=== PATIENT | female | born 1995 | race Caucasian/White ===

== ENCOUNTER 2017-02-07 10:31 | Day surgery (SDC) | payer BC ==
[~2017-02-07] VITALS: Ht 162.6 cm; Wt 51.0 kg
[2017-02-07] VITALS (12 sets, daily range): BP systolic 122–159; BP diastolic 67–78; PULSE 76–98; RESP 14–27; Ht 162.6 cm; Wt 51.0 kg
[~2017-02-07 10:31] MED LIST: CEFAZOLIN 1 GM INJ ONE; DEXAMETHASONE 4 MG/ML 1 ML INJ ONE; FENTAnyl 50 MCG/ML VIAL ONE; GLYCOPYRROLATE 0.4 MG INJ ONE; METOCLOPRAMIDE 10 MG INJ ONE; MIDAZOLAM 1 MG/ML 2 ML INJ ONE; NEOSTIGMINE 3 MG/3 ML SYRINGE ONE; ONDANSETRON 4 MG INJ ONE; PROPOFOL 20 ML ONE; ROCURONIUM 50 MG INJ ONE; ROPIVACAINE 0.5 % 30 ML VIAL ONE; SUGAMMADEX SODIUM 200 MG/2 ML VIAL IV ONE
--- NOTE | 2017-02-07 10:51 | HPN ---
Date/Time of Note Date/Time of Note DATE: 02/07/17 TIME: 10:50 Interval H&P Admission Note Pt. seen H&P reviewed: No system changes YO TALBOT MD Feb 07, 2017 10:50
[2017-02-07] MEDS ORDERED: NORE1TAB12 PO (11:05)
[2017-02-07] MEDS ORDERED: ROPIVACAINE 0.5 % 30 ML VIAL ONE (11:06)
[2017-02-07] MEDS ORDERED: POLYMYXIN/BACITRACIN 1L IRRIG ONE (11:06)
[2017-02-07] MEDS ORDERED: BACITRACIN/POLYMYXIN 28.35 GM OINT TOP ONE (11:07)
[2017-02-07] MEDS ORDERED: CA CHLORIDE 10% 10 ML SYRINGE ONE (11:57)
[2017-02-07] MEDS ORDERED: THROMBIN 5000 UNIT VIAL ONE (11:57)
[2017-02-07] MEDS ORDERED: OXYCODONE/ACETAMINOPHEN (5/325) TAB PO PRN ×2 (12:00)
[2017-02-07] MEDS ORDERED: hydrALAzine 20 MG INJ IV PRN (12:00)
[2017-02-07] MEDS ORDERED: ONDANSETRON 4 MG INJ IV PRN (12:00)
[2017-02-07] MEDS ORDERED: MEPERIDINE 25 MG INJ IV PRN (12:00)
[2017-02-07] MEDS ORDERED: HYDROmorphONE (0.2 MG/ML) 10ML SYG IV PRN ×3 (12:00)
[2017-02-07] MEDS ORDERED: FENTAnyl 50 MCG/ML VIAL IV PRN ×3 (12:00)
[2017-02-07] MEDS ORDERED: DIPHENHYDRAMINE 50 MG INJ IV PRN (12:00)
[2017-02-07] MEDS ORDERED: EPHEDrine SULFATE 50 MG/5 ML SYG IV PRN (12:00)
[2017-02-07] MEDS ORDERED: MIDAZOLAM 1 MG/ML 2 ML INJ IV PRN (12:00)
[2017-02-07] MEDS ORDERED: IPRATROPIUM (NEB) 0.5 MG/2.5 ML AMP HHN PRN (12:00)
[2017-02-07] MEDS ORDERED: LABETALOL HCL 20MG INJ IV PRN (12:00)
[2017-02-07] MEDS ORDERED: TRIMETHOBENZAMIDE 100 MG/ML VIAL IM PRN (12:00)
[2017-02-07] MEDS ORDERED: ALBUTEROL 0.083% (NEB) 2.5 MG/3 ML AMP HHN PRN (12:00)
[2017-02-07] MEDS ORDERED: morphine 2 MG INJ IV PRN (12:30)
[2017-02-07] MEDS ORDERED: SUGAMMADEX SODIUM 200 MG/2 ML VIAL IV ONE (14:20)
[2017-02-07] MEDS ORDERED: METOCLOPRAMIDE 10 MG INJ ONE (14:36)
--- NOTE | 2017-02-07 14:49 | SIPON ---
Date/Time of Note Date/Time of Note DATE: 02/07/17 TIME: 14:47 Operative Report Preoperative Diagnosis Right insertional Achilles Tendinitis Right Achilles retrocalcaneal bursitis Right Achilles Gurpreet Deformity Postoperative Diagnosis Right insertional Achilles Tendinitis Right Achilles retrocalcaneal bursitis Right Achilles Gurpreet Deformity Operation/Procedure Performed Right insertional Achilles Tendinitis debridement Right Achilles retrocalcaneal bursectomy Right Achilles Gurpreet Deformity calcaneal exostectomy Application PRP to the Right Achilles Surgeon Yo Talbot MD assistant professor sculpture Guido Talbot MD Second assist: JOSE ALDANA MD Anesthesia: general, other (popliteal block) Estimated blood loss: 0 - 10 ml's Transfusion Required none Specimen none Grafts/Implants 1 3.5mm Arthrex Push Lock with SutureTape Arthrex PRP (Hct 5%) Complications none YO TALBOT MD Feb 07, 2017 14:49
--- NOTE | 2017-02-07 14:49 | RADRPT ---
PROCEDURE: Intraoperative imaging of the right ankle with fluoroscopy. CLINICAL INDICATION: Right ankle pain. Intraoperative. TECHNIQUE: Images of the right ankle were obtained in the operating room with an image intensifier . No radiologist was in attendance. Fluoroscopy time is 0.2 minutes and 7 images were obtained. COMPARISON: No prior study is available for comparison. FINDINGS: Surgical instruments are noted in the posterior superior calcaneous at the site of osteotomy. IMPRESSION: 1. Intraoperative imaging of the right ankle. RPTAT: QQ .Gopi Aleman MD, MD Date Time Electronically viewed and signed by .Gopi Aleman MD, on 02/07/2017 14:49 .R/
--- NOTE | 2017-02-09 20:02 | QN ---
Documentation Comment HPI: Patient is a 21-year-old female with a 1 year history of ongoing Achilles tendinitis insertional type that is recalcitrant to both physical therapy and platelet rich plasma injections. Given her ongoing pain and difficulty being active patient was indicated for surgery. PMH: None PFH: Noncontributory PSH: Patient is a student at [employer]. She is a non- smoker, drinker and is very active in [employer] YO TALBOT MD Feb 09, 2017 20:02
--- NOTE | 2017-02-09 20:06 | OPR ---
DATE OF OPERATION: 02/07/2017 SURGEON: Yo Saldivar M.D. PROGRAM MANAGEMENT MANAGER: Guido Saldivar MD SECOND PROGRAM MANAGEMENT MANAGER: Remy Sorenson MD. PREOPERATIVE DIAGNOSIS: 1. Right Achilles insertional tendonitis. 2. 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 3. Right Achilles retrocalcaneal bursitis. POSTOPERATIVE DIAGNOSES: 1. Right Achilles insertional tendonitis. 2. 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 3. Right Achilles retrocalcaneal bursitis. PROCEDURE: 1. Right ankle Achilles tendon debridement. 2. Right ankle Achilles Gurpreet's deformity calcaneal exostectomy. 3. Right ankle retrocalcaneal bursectomy. 4. Application of platelet rich plasma to the Achilles insertion 5. Right Achilles tendon distal insertion repair ANESTHESIA: General with popliteal block. Anesthesiologist: See chart notes TOURNIQUET TIME: 105 minutes at 250 mmHg. IMPLANTS: Arthrex 3.5 mm PushLock with suture tape as well as the Arthrex Humberto PRP spun on 5% hematocrit. COMPLICATIONS: None. INDICATIONS: The patient is a 21-year-old female complaining of 1 year of insertional Achilles tendinopathy that has been recalcitrant to both physical therapy as well as PRP injections and has ongoing pain preventing her from doing the activities she enjoys doing. Given the ongoing pain, this patient was indicated for surgery. Risk Note: Patient was explained the risks and benefits of surgery and the patient's cocopah language including not limited to infection, bleeding, injury to blood vessels, nerves, ligaments or tendons. Risks of anesthesia, deep vein thrombosis and need for reduce future surgery. Patient acknowledged these risk by signing the surgical consent form. DESCRIPTION OF PROCEDURE: The patient was met in the preoperative holding area and and the correct operative extremity was marked accordingly and confirmed with the patient and consent. Patient was brought to the operative theater and given preoperative antibiotics and anesthesia. Patient was then placed in the prone position and all bony prominences were all well-padded. Esmarch was placed on sterilely. Patient was then prepped and draped in normal sterile fashion and timeout was taken in all parties in room agreed as correct patient, extremity and procedure. A J incision was made over the lateral border of the Achilles insertion extending to the distal insertion and a J type fashion. This was brought down with care to avoid any injury to the neurovascular structures. The Gurpreet's deformity was identified at the Achilles insertion. The Achilles was peeled back from lateral to medial. The retrocalcaneal bursitis was debrided and removed as well as any diseased Achilles tendon at the insertion. The Gurpreet's deformity was identified on lateral x-ray under fluoroscopy. And then resected accordingly. The Gurpreet's resection was noted to be in excellent position prior to resection. The resection was then started with an oscillating saw and completed with an osteotome. The remainder of the calcaneal insertion site was then rasped with a power rasp was on the medial, lateral, superior and inferior side to ensure there was a smooth calcaneus. The wound was irrigated thoroughly. A 3.5 mm push lock was placed at the inferior lateral aspect of the Achilles and then using Arthrex suture tape the Achilles was then whipstitched from distal to proximal and proximal distal and then tensioned back in to the push lock for repair. The periosteum was then closed over the Achilles and then the wound was irrigated thoroughly again and then platelet rich plasma was placed over the Achilles repair site. And then the remainder of the wound was closed in layers with 2-0 Vicryl followed by 3-0 Monocryl and 4 -0 nylon for the skin. The wound was dressed in Xeroform and triple antibiotic ointment and patient was placed in a well-padded short leg splint. The splint was placed in slight plantarflexion. At the end of the case all sponge needle counts were correct. An shipping and receiving assistant orthopedic surgeon was needed for this case to assist with positioning of the limb during repair of the injury as well as assisting in removal of the Gurpreet's deformity. Without a qualified orthopedic surgical services asst in this case the case would be significantly more complex and longer. Dictated By: YO HERNANDEZ/JOEL Conf#: [id number] DID#: [id number]
== END 2017-02-07 17:40 | disposition home or self-care (01) ==
LOC: SDS 10:31
PROVIDERS: ATTEND Orthopaedic Surgery
DX: M76.61 Achilles tendinitis, right leg (principal); M21.6X1 Other acquired deformities of right foot
CPT/HCPCS: 82306; 84703; C1713; J0690; J1100; J2250; J2405; J2710; J2765; J2795; J3010